=== PATIENT | female | born 1995 | race Caucasian/White ===

== ENCOUNTER 2022-12-04 17:03 | Emergency (ER) | payer SELFPAY ==
[~2022-12-04] VITALS: Ht 175 cm; Wt 83.0 kg
[2022-12-04 17:08] VITALS: BP 129/93
--- NOTE | 2022-12-04 17:18 | ED Dyspnea ---
General Stated Complaint: SOB|AEROSOL INHALATION Source of Information: Patient Exam Limitations: No Limitations History of Present Illness Date Seen by Provider: December 04, 2022 Time Seen by Provider: 17:10 Initial Comments Patient is a 27-year-old female who presents to the emergency room with a chief complaint of shortness of breath. Patient states that she was spraying an ant spray in an enclosed bathroom without proper ventilation and feels like she inhaled some of the spray. On inspection of the label of the spray it is primarily a [employer] oil spray. Patient complains of cough with deep breath. No chest pain. Does not feel lightheaded or dizzy. Is anxious and her arms feel tingly. Takes Adderall for ADHD. Timing/Duration: 1 Hour Severity: Moderate Associated Symptoms: Chest Pain, Cough, Other (feels SOB) Allergies and Home Medications Allergies Coded Allergies: No Known Drug Allergies (Unverified , 12/04/22) Patient Home Medication List Home Medication List Reviewed: Yes Review of Systems Review of Systems Constitutional: see HPI EENTM: no symptoms reported Respiratory: cough, short of breath Cardiovascular: no symptoms reported Gastrointestinal: no symptoms reported Genitourinary: no symptoms reported Musculoskeletal: no symptoms reported Physical Exam Vital Signs Vital Signs - First Documented 12/04/22 17:08 Temp 36.1 Pulse 99 Resp 26 B/P (MAP) 129/93 (105) Pulse Ox 100 O2 Delivery Room Air Capillary Refill : Height, Weight, BMI Height: '" Weight: lbs. oz. kg; BMI Method: General Appearance: No Apparent Distress, WD/WN HEENT: PERRL/EOMI Neck: Normal Inspection Respiratory: No Accessory Muscle Use, No Respiratory Distress, Crackles (occ crackle right base otherwise clear no respiratory distress) Cardiovascular: Regular Rate, Rhythm Extremity: Normal Inspection, Normal Range of Motion Neurologic/Psychiatric: Alert, Oriented x3, Depressed Affect (flat affect) Skin: Normal Color, Warm/Dry Progress/Results/Core Measures Results/Orders My Orders Orders - CARMEN BONILLA MD Chest 1 View, Ap/Pa Only (12/04/22 17:19) Vital Signs/I&O 12/04/22 17:08 Temp 36.1 Pulse 99 Resp 26 B/P (MAP) 129/93 (105) Pulse Ox 100 O2 Delivery Room Air Departure Impression Primary Impression: Inhalation injury due to chemical Disposition: 01 HOME, SELF-CARE Condition: Stable Departure-Patient Inst. Decision time for Depature: 17:52 Add. Discharge Instructions: You can use an hmtz-kaj-laqompe cough medication such as Robitussin for your irritated throat. I have written you a prescription for an inhaler, 2 puffs every 6 hours as needed for shortness of breath. If you have worsening shortness of breath, chest pain, wheezing or any other emergent, concerning symptoms please return to the emergency room for reevaluation. Please follow-up with your primary care provider Scripts Albuterol Sulfate (Ventolin Hfa) 90 Mcg Hfa.aer.ad 2 PUFF INH Q6H PRN for SHORTNESS OF BREATH, #1 UNIT 1 PUFF = 90 MCG Prov: CARMEN BONILLA MD 12/04/22 CARMEN BONILLA MD December 04, 2022 17:18
--- NOTE | 2022-12-04 17:37 | Diagnostic Imaging Report ---
INDICATION: Inhalation injury, inhaled [employer] oil. TECHNIQUE: Frontal chest obtained at 05:16 p.m. FINDINGS: Heart and mediastinal silhouette are normal in appearance. The lungs are clear. There is no pneumothorax or pleural fluid. IMPRESSION: Negative chest. Dictated by: Dictated on workstation # [id number]
[2022-12-04] MEDS ORDERED: ALBU8.5H6 INH (17:53)
== END 2022-12-04 18:03 | disposition home or self-care (01) ==
LOC: ER 17:07
DX: J68.8 Other respiratory conditions due to chemicals, gases, fumes and vapors (principal); F90.9 Attention-deficit hyperactivity disorder, unspecified type; Z79.899 Other long term (current) drug therapy
CPT/HCPCS: 71045; 99285